=== PATIENT | female | born 2000 | race Caucasian/White ===

== ENCOUNTER 2024-11-02 03:57 | Emergency (ER) | payer OTHER, SELFPAY ==
[2024-11-02 04:06] VITALS: BP 125/85
[2024-11-02 04:22] VITALS: BMI 30.5
[2024-11-02 04:29] VITALS: BP 121/84
[2024-11-02 04:59] LABS: % Basophils 0.7 % (0-2); % Eosinophils 2.5 % (0-6); % Immature Granulocytes 0.2 % (0-0.5); % Lymphocytes 36.6 % (20.5-51.1); % Monocytes 6.8 % (1.7-9.3); % Neutrophils 53.2 % (42.2-75.2); Absolute Basophils 0.1 10^3/uL (0-0.2); Absolute Eosinophils 0.2 10^3/uL (0-0.7); Absolute Lymphocytes 3.1 10^3/uL (1.2-3.4); Absolute Monocytes 0.6 10^3/uL (0.1-0.6); Absolute Neutrophils 4.5 10^3/uL (1.4-6.5); Hematocrit 37.9 % (37.0-47.0); Mean Corp Hgb Conc. 34.3 g/dL (33.0-37.0); Mean Corpuscular Hgb 30.2 pg (27.0-31.0); Mean Corpuscular Volume 88.1 fL (81.0-99.0); Mean Platelet Volume 9.7 fL (7.4-10.4); Nucleated Red Blood Cells % 0.2 %; Platelet Count 253 10^3/uL (130-400); Red Cell Dist. Width 12.6 % (11.5-14.5); White Blood Cell Count 8.5 10^3/uL (4.8-10.8)
[2024-11-02 05:00] VITALS: BP 121/87
[2024-11-02 05:14] LABS: HCG, Serum Qualitative Screen Negative
[2024-11-02 05:15] LABS: Urine Albumin 1+ (Neg - Trace); Urine Bilirubin Negative (Negative); Urine Character Clear (Clear); Urine Color Yellow; Urine Glucose Negative (Negative); Urine Ketone Negative (Negative); Urine Leukocyte Negative (Negative); Urine Nitrite Negative (Negative); Urine Occult Blood Negative (Negative); Urine Urobilinogen Negative (Neg - 1+)
[2024-11-02 05:16] LABS: ALT (SGPT) 20 U/L (0-35); AST (SGOT) 19 U/L (14-36); Albumin 4.3 g/dl (3.5-5.0); Alkaline Phosphatase 59 U/L (38-126); Blood Urea Nitrogen 9 mg/dl (7-17); Calcium 10.2 mg/dl (8.4-10.2); Carbon Dioxide 25 mmol/L (22-30); Chloride 107 mmol/L (98-107); Estimated Creatinine Clearance > 125 ml/min; Glucose 105 mg/dl (70-99); Lipase 51 U/L (23-300); Sodium 142 mmol/L (135-145); Total Bilirubin 0.6 mg/dl (0.2-1.3); Total Protein 6.7 g/dl (6.3-8.2); eGFR > 60.00
[2024-11-02 06:00] VITALS: BP 114/78
[2024-11-02 06:42] LABS: Urine Squamous Cell 26-30 /LPF (Few)
--- NOTE | 2024-11-02 06:43 | ED.GENMED ---
History of Present Illness
General
Chief Complaint: Abdominal Symptoms
Source: patient
Time Seen by Provider: 11/02/24 06:34
History of Present Illness
History of Present Illness:
24-year-old female presents the emergency room complaining of upper abdominal pain nausea vomiting. Symptoms began in middle the night. Her last episode of vomiting was about 3 AM. She observed what she thought to be coffee-ground type material
in her vomitus and was concerned she was having bleeding. She denies having any black tarry stools. She denies frequent NSAID use.
Phy Exam
Physical Exam
Physical Exam:
General: Awake, Alert, Oriented X3. No acute distress.
Vitals: unremarkable
Head: Atraumatic
Eyes: Pupils equal, EOMI
Throat: Airway intact, no exudates
Neck: Trachea midline
Lungs: Clear and equal b/l
Heart: Regular rate, no murmurs
Abd: Soft,mod upper abd tenderness to palpation, No pulsatile mass
Neuro: Nonfocal
Skin: Warm, dry, no rash
Extremities: pulses equal b/l, no edema
Course
Orders/Labs/Results
Orders:
Orders
11/02/24 04:11
IV Insert/Care/Rem.- Treatment PRN
11/02/24 04:31
Test Result ONCE
11/02/24 04:41
Complete Blood Count/With Diff Urgent
Comprehensive Metabolic Panel Urgent
HCG, Serum Qualitative Screen Urgent
Lipase Urgent
Urinalysis Reflex To Culture Urgent
Date Specimen was Collected: 11/02/24
Time Specimen was Collected: 04:11
Urine Microscopic Reflex Cult Urgent
11/02/24 06:42
0.9% Sodium Chloride 1000 ml [Nss] 1,000 ml IV BOLUS
HYDROmorphone [Dilaudid] 0.5 mg IV NOW STA
Ondansetron Injectable [Zofran] 4 mg IV NOW STA
US Abdomen Complete/Upper Urgent
Comment:
Reason For Exam: upper abd pain
11/02/24 06:47
Pantoprazole [Protonix IV] 40 mg IV NOW STA
Abnormal Lab Results
11/02/24
04:41
Glucose 105 H mg/dl
(70-99)
Urine Bacteria (Reflex) Few A
(Negative)
Urine Albumin (Reflex) 1+ A
(Neg - Trace)
11/02/24 04:41
11/02/24 04:41
Vital Signs
Initial and Last Documented VS:
Initial Vital Signs
Temp Pulse Resp BP Pulse Ox
98.4 F 74 20 125/85 98
11/02/24 04:06 11/02/24 04:06 11/02/24 04:06 11/02/24 04:06 11/02/24 04:06
Last Documented Vital Signs
Temp Pulse Resp BP Pulse Ox
98.4 F 71 20 121/86 98
11/02/24 04:06 11/02/24 08:45 11/02/24 08:45 11/02/24 07:00 11/02/24 08:45
MDM/Problems Addressed
Differential Diagnosis Includes:
Gastritis, acute cholecystitis, cholelithiasis, peptic ulcer disease, duodenal ulcer, viral infection
MDM/Problems Addressed:
Patient presents with upper abdominal pain and concern that she had coffee-ground emesis. Rectal exam shows heme-negative stool. Her labs are all normal including a BUN. She is hemodynamically stable. She has had no further vomiting since 3 AM.
Patient treated with Protonix here as well as antiemetics. Patient stable for discharge home. Follow-up with primary care provider. Continue Protonix as an outpatient.
*Radiology
Radiology exam reviewed: radiology read reviewed
*Pulse Oximetry
Patient hypoxic: no
*Critical Care Note
Total Time (30-74mins, 75-104mins- exclusive of procedures): Not Applicable
ED Attending Note
-
Portions of this chart may have been created with voice recognition software.� Occasional wrong word or��sound alike� substitutions may have occurred due to the inherent limitations of voice recognition software.
Discharge Plan
Departure
Patient Disposition: Home (Routine Discharge)
Date of Disposition: 11/02/24
Time of Disposition: 10:35
Patient with high blood pressure during this ER visit?: No
Condition: Good
Discharge Problem:
Gastritis, Acute nausea with nonbilious vomiting
Instructions: Gastritis - ED discharge instructions, Abdominal Pain
Prescriptions:
New
ondansetron 4 mg tablet,disintegrating
4 mg PO TID PRN (Reason: nausea and vomiting) Qty: 10 0RF
pantoprazole 40 mg tablet,delayed release (DR/EC)
40 mg PO DAILY Qty: 30 0RF
No Action
drospirenone-ethinyl estradiol [Vestura (28)] 3-0.02 mg Tablet
1 tab PO DAILY
lamotrigine
25 mg PO DAILY
Referrals:
carmen caro [Other]
Interventions
Interventions:
*Risk Screen - Suicide Last Done: 11/02/24 04:06
*General Assessment Last Done: 11/02/24 04:06
*Neglect/Abuse Screening Last Done: 11/02/24 04:06
*ED- Fall Risk Assessment Last Done: 11/02/24 04:06
*ED COVID-19 Vaccine History Last Done: 11/02/24 04:06
VO-Vcdmdd-Sweruoszgj Assessment Last Done: 11/02/24 04:22
Discharge Date and Time
Print Language: KHMER
[2024-11-02 06:44] LABS: Urine Bacteria Few (Negative); Urine Red Blood Cell None Seen /HPF (0-2)
[2024-11-02] MEDS: NSS 1000 IV (06:54)
[2024-11-02] MEDS: PROTONIX IV 40 MG IV (06:55)
[2024-11-02] MEDS: ZOFRAN 4 MG IV (06:55)
[2024-11-02 07:00] VITALS: BP 121/86
== END 2024-11-02 10:40 | disposition home or self-care (01) ==
LOC: EMR 03:57
PROVIDERS: Emergency Medicine; EMERGENCY PHYSICIAN Emergency Medicine
DX: K29.00 Acute gastritis without bleeding (principal); R11.2 Nausea with vomiting, unspecified
CPT/HCPCS: 99284; 96374; 96375; 76700; 80053; 81003; 81015; 83690; 84703; 85025